=== PATIENT | female | born 1950 | race Caucasian/White ===

== ENCOUNTER 2017-01-09 13:45 | Inpatient (IN) | payer MEDICARE, BC ==
--- NOTE | 2016-12-27 15:22 | HP ---
AMENDED REPORT NOW INCLUDES COSIGNER DESIGNATION - ESIGNED BEFORE ADJUSTMENT CC: Florencio Gilbert MD; Vinh Zarco MD * ADMISSION HISTORY AND PHYSICAL: DATE OF ADMISSION/SURGERY: 01/09/17 ATTENDING SURGEON: Charly Covarrubias MD * (DICTATED BY BREA ERID) PRIMARY CARE PHYSICIAN: Florencio Gilbert MD CHIEF COMPLAINT: Colonic mass. HISTORY OF PRESENT ILLNESS: Mrs. Amezquita is a pleasant 66-year-old female, who was referred to our office for evaluation of A large colonic polyp. The patient apparently had her first screening colonoscopy earlier this month by Dr. Zarco that revealed a lesion at 40 cm from the anal verge with biopsies consistent with tubular adenoma. The patient herself denied having any lyndsay bleeding per rectum or recent weight loss. She does have a family history of colon cancer in her mom. She was seen earlier this month by Dr. Covarrubias and discussed the possibility of laparoscopic-assisted polypectomy versus partial colectomy. According to her colonoscopy report, the lesion was found at approximately 40 cm from the anal verge and was flat and large, but I do not have an actual size of the lesion. The lesion in the surrounding area was tattooed and biopsies were taken that was consistent with tubular adenoma. Again, the patient denied any abdominal pain, nausea, vomiting, or recent changes in her bowel habits. She is otherwise a relatively healthy older female with only hypertension as a past medical history. She had had some salivary gland infection recently for which she has been taking Augmentin twice a day and will finish her course 2 days from today. PAST MEDICAL HISTORY: Significant for hypertension. She denies any history of heart, lung, liver, or kidney disease. PAST SURGICAL HISTORY: Significant for tonsillectomy in childhood as well as right knee arthroscopy with repair of meniscal tear. CURRENT MEDICATIONS: Her medications at home include: 1. Ramipril 10 mg once daily. 2. Probiotic 1 tablet daily. 3. Vitamin C 500 mg 1 tablet daily. 4. Augmentin 500/125 mg 1 tablet b.i.d. ALLERGIES: She is allergic to CODEINE. FAMILY HISTORY: Significant for colon cancer in her mother. SOCIAL HISTORY: The patient is . She is retired, lives with her . She is a current smoker, smokes roughly half a pack per day for the last 30 plus years. She denies alcohol or illicit drug use. REVIEW OF SYSTEMS: See HPI, otherwise negative. She denies any headache, dizziness, blurred vision, or double vision. No sore throat, cough, shortness of breath, or dyspnea at rest. No back pain, flank pain, dysuria, hematuria, or urinary frequency. She denies abdominal pain, nausea, vomiting, and changes in bowel habits or bleeding per rectum. No fever, chills, night sweats or recent weight loss. PHYSICAL EXAMINATION GENERAL: She is a pleasant healthy-appearing older female in no acute distress or discomfort at the time of her visit. VITALS: Her vitals today revealed blood pressure of 128/78, pulse of 72, respirations of 18, temperature of 98 degrees. She weighs 140 pound on a 5 feet 2 inches giving her BMI of 25.6. HEENT: Sclerae anicteric. PERRLA. EOMs intact. Oropharynx is pink and moist with no exudate. NECK: Supple. Trachea midline. No cervical adenopathy, thyromegaly, or JVD. LUNGS: Clear to auscultation bilaterally. No rales, wheezes, or rhonchi noted. BREASTS: Exam deferred at this time. HEART: Regular rate and rhythm. Normal S1, S2 without rubs, murmurs, or gallops. BACK: Normal curvature. No CVA tenderness. ABDOMEN: Soft, nontender, and nondistended. No hernias, masses, or hepatosplenomegaly. There is no guarding, rigidity or rebound tenderness and Andrews sign was negative. EXTREMITIES: Without cyanosis, clubbing, or edema. RECTAL: Exam deferred until the time of surgery. NEUROLOGIC: Grossly intact. IMPRESSION: A 66-year-old female with recent diagnosis of tubular adenoma with large flat polyp 40 cm from the anal verge with biopsies consistent with tubular adenoma, who was seen in the office today to discuss surgery. PLAN: The patient is scheduled for a laparoscopic-assisted polypectomy with possible partial colectomy to be performed by Dr. Covarrubias on 01/09/17. Having a large tubular adenoma of the colon likely at the splenic flexure or transverse colon on an otherwise healthy woman represents about a 5% chance lifetime risk converting to colon cancer. For this reason, it was recommended for the patient to undergo a surgical intervention as outlined above. We will likely perform a partial colectomy versus polypectomy and it is hard to make that decision until the time of surgery. The patient seemed to understand and wishes to proceed. We outlined the details for her and the risks involved including but not limited to infection, bleeding, or injury to adjacent structures. She seemed to understand and wishes to proceed with surgery. We will get her bowel prep done the day before. She will also go for preadmission testing including labs, EKG, and chest x- ray given her longstanding history of smoking. We described with her that projected postoperative period and the likelihood to stay in the hospital for a minimum of 3 to 5 nights. We will follow her up accordingly. BREA REID [id number]/[facility] #: [id number] MTDEdgar
--- NOTE | 2017-02-14 21:37 | HP ---
CC: Dr. Vinh Zarco; Dr. Gilbert * HISTORY AND PHYSICAL: DATE OF SURGERY: 02/27/17 PATIENT OF: Charly Covarrubias MD ATTENDING SURGEON: Charly Covarrubias MD * (DICTATED BY BREA REID) PRIMARY CARE PHYSICIAN: Florencio Gilbert MD CHIEF COMPLAINT: Colonic mass. HISTORY OF PRESENT ILLNESS: Ms. Amezquita is a pleasant 66-year-old female who is well known to our practice from prior visit about a month ago. Patient was initially referred to our office for evaluation of a large colonic polyp. She had her first screening colonoscopy earlier in November of this year that revealed a large lesion at 40 cm from the anal verge whose biopsy is consistent with tubular adenoma. Patient was seen in the office shortly after that and was initially scheduled for a laparoscopic assisted polypectomy with possible partial colon resection. She underwent a readmission testing and unfortunately she was found to have some changes in her EKG for which further evaluation was warranted. Patient was seen by Dr. Aragon for cardiac evaluation and had an echocardiogram and a stress test that revealed no significant abnormalities. Patient returned back to our office for updated history and physical regarding her upcoming surgery. As mentioned, she was recently diagnosed with a large tubular adenoma approximately at 40 cm from the anal verge. She was seen by Dr. Covarrubias earlier in December and by myself and we discussed proceeding with surgery given her findings on the colonoscopy. Patient herself denies any significant changes since her last office visit. She denies any abdominal pain , nausea, vomiting. No recent changes in the bowel habits. She otherwise is relatively healthy older female with a history of hypertension, and has been recently on antibiotic due to a salivary gland infection for which she has been taking Augmentin until a couple of weeks ago. PAST MEDICAL HISTORY: Significant for hypertension. She denies any history of heart, lung, liver or kidney disease. PAST SURGICAL HISTORY: Significant for tonsillectomy as a child as well as right knee arthroscopy with repair of a meniscal tear. CURRENT MEDICATIONS: Include: 1. Ramipril 10 mg once daily. 2. Probiotic 1 tablet daily. 3. Vitamin C 500 mg 1 tablet daily. 4. Estrace vaginal cream with applicator as needed. ALLERGIES: She is allergic to Codeine. FAMILY HISTORY: Significant for colon cancer in her mother. SOCIAL HISTORY: Patient is . She is a retired adoption social worker. Lives with her . She is a current smoker, smokes approximately half pack per day for the past 30+ years, had preoperative chest x-ray last month that was within normal limits. She denies alcohol or illicit drug use. REVIEW OF SYSTEMS: See HPI. Otherwise, negative. She denies any headache, dizziness, blurred vision or double vision. No sore throat, cough, wheezing or shortness of breath. No chest pain, palpitation, dyspnea at rest or ankle swelling. She denies back pain, flank pain, dysuria, hematuria or urinary frequency. She denies abdominal pain, nausea, vomiting, or recent changes in the bowel habits. No fever, chills, night sweats or recent weight loss. PHYSICAL EXAMINATION GENERAL: She is a pleasant healthy-appearing older female, appears comfortable , in no acute distress or discomfort. VITAL SIGNS: Her vitals today revealed blood pressure of 152/88, pulse of 62, respiration of 16, temperature of 98.1. She is 5 feet 2 inches tall, weight is 140 pounds with BMI of 26. HEENT: Head is normocephalic, atraumatic. EOMs intact. PERRLA. Oropharynx is pink, moist with no exudate. NECK: Supple, trachea midline. No cervical adenopathy, thyromegaly or JVD. LUNGS: Clear to auscultation bilaterally. HEART: Regular rate and rhythm. Normal S1 and S2 without rubs, murmurs or gallops. BACK: With normal curvature. No CVA tenderness. BREASTS: Exam deferred at this time. ABDOMEN: Soft, nontender, nondistended. No hernias, masses or hepatosplenomegaly. There is no guarding, rigidity or rebound tenderness. Andrews sign if negative. EXTREMITIES: Without cyanosis, clubbing or edema. RECTAL: Exam deferred at this time. NEUROLOGIC: Grossly intact. IMPRESSION: A 66-year-old female with recent diagnosis of a tubular adenoma with large flat polyp at 40 cm from the anal verge whose biopsy is consistent with tubular adenoma. PLAN: The patient is scheduled for a laparoscopic-assisted polypectomy with possible partial colectomy to be performed by Dr. Covarrubias on 02/27/17. Having a large tubular adenoma of the colon, likely at the splenic flexure or transverse colon, on an otherwise healthy woman represents about 5% chance of lifetime risk converting to colon cancer. For this reason, it was recommended to her to undergo a surgical intervention as outlined above. We discussed with her the very possibility of doing a laparoscopic-assisted polypectomy or partial colectomy in case unsuccessful to do the polypectomy alone. The rationale, indication, risks and benefits were discussed with her today. The risks include but not limited to infection, bleeding, or injury to the adjacent structures. She will undergo a bowel prep the day before surgery as well as oral antibiotics for bowel cleansing. We will follow her up accordingly. BREA REID [id number]/[facility] #: [id number] COBY
[2017-02-26] MEDS ORDERED: Buffered Lidocaine 0.9% SYRIN* 5 ML/SYR SYRINGE INTRADERM ONE (12:30)
[2017-02-27] MEDS ORDERED: Famotidine TAB* 20 MG PO ONE (06:00)
[2017-02-27] MEDS ORDERED: Sodium Citrate/Citric Acid* 15 ML UDC PO ONE (06:00)
[2017-02-27] MEDS ORDERED: Metoclopramide TAB* 10 MG PO ONE (06:00)
[2017-02-27] MEDS ORDERED: Buffered Lidocaine 0.9% SYRIN* 5 ML/SYR SYRINGE ONE ×2 (11:40→12:03)
[2017-02-27] MEDS ORDERED: Metoclopramide TAB* 10 MG ONE (12:02)
[2017-02-27] MEDS ORDERED: Sodium Citrate/Citric Acid* 15 ML UDC ONE (12:02)
[2017-02-27] MEDS ORDERED: Famotidine TAB* 20 MG ONE (12:02)
[2017-02-27] MEDS ORDERED: NS 0.9% IVPB ONE (12:30)
[2017-02-27] MEDS ORDERED: ERTAPENEM IVPB ONE (12:30)
[2017-02-27] MEDS ORDERED: Ertapenem* 1 GM in NS 0.9% 50 ML* 50 ML IVPB ONE (12:30)
[2017-02-27] MEDS ORDERED: Bupivacaine 0.25% SDV* 30 ML ONE (15:04)
[2017-02-27] MEDS ORDERED: Propofol* 10 MG/ML 20 ML BTL IV PUSH ONE (15:40)
[2017-02-27] MEDS ORDERED: Lidocaine 2% PF * 5 ML VIAL ONE (15:40)
[2017-02-27] MEDS ORDERED: fentaNYL* 50 MCG/ML 5 ML VIAL (250 MCG VIAL) ONE (15:40)
[2017-02-27] MEDS ORDERED: Ketorolac INJ* 30 MG/ML 1 ML VIAL ONE (15:40)
[2017-02-27] MEDS ORDERED: Dexamethasone IV* 4 MG/ML 1 ML (4 MG) ONE (15:40)
[2017-02-27] MEDS ORDERED: Ondansetron INJ* 2 MG/ML VIAL ONE (15:40)
[2017-02-27] MEDS ORDERED: Atracurium* 10 MG/ML 10 ML VIAL ONE (15:40)
[2017-02-27] MEDS ORDERED: Phenylephrine IV* 40 MCG/ML 10 ML SYRINGE ONE (16:07)
[2017-02-27] MEDS ORDERED: EPHEDrine (Pressors)* 50 MG/ML VIAL ONE ×2 (16:33→18:13)
[2017-02-27] MEDS ORDERED: Ondansetron INJ* 2 MG/ML VIAL IV PRN (17:28)
[2017-02-27] MEDS ORDERED: DiMENhydriNATE IV* 50 MG/ML VIAL IV PUSH PRN (17:28)
--- NOTE | 2017-02-27 20:29 | SURGPN ---
Brief Operative Note - Surgery Procedures: Procedures Pre-OP Diagnoses: Colon polyp Post-op Diagnosis: same Procedure: Laparoscopic assisted polypectomy Surgeon: Satish Asst: Skip Meyer Anesthesia: GETA Bylephani EBL: <100cc IVF: 2800cc LR Specimen: colon polyp Drains: none santiago: 250cc
[2017-02-27] MEDS ORDERED: HYDROmorphone INJ* 1 MG/ML CARPUJECT SYRINGE ONE (21:38)
[2017-02-27] MEDS ORDERED: fentaNYL* 50 MCG/ML 2 ML VIAL (100 MCG VIAL) ONE (21:38)
[2017-02-27] MEDS: fentaNYL* 50 MCG/ML 2 ML VIAL (100 MCG VIAL) IV PRN ×2 (21:39→21:44)
[2017-02-27] MEDS: HYDROmorphone INJ* 1 MG/ML CARPUJECT SYRINGE IV PRN ×2 (21:40→21:48)
[2017-02-27] MEDS: Ondansetron INJ* 2 MG/ML VIAL IV PRN (22:19)
[2017-02-27] MEDS ORDERED: Ondansetron INJ* 2 MG/ML VIAL IV ONE (23:26)
[2017-02-28] MEDS: oxyCODONE/Acetamin 5/325 MG* TAB PO PRN ×4 (04:18→21:14)
[2017-02-28] MEDS: Heparin VIAL(*) 5000 UNITS/ML VIAL (FIVE THOUSAND) SUBCUT SCH ×3 (06:36→21:20)
[2017-02-28] MEDS: Ketorolac INJ* 30 MG/ML 1 ML VIAL IV PRN (06:40)
--- NOTE | 2017-02-28 07:46 | PN ---
Progress Note - Progress Note Date of Service: 02/28/17 SOAP: Subjective: Pt seen and examined. Feeling ok. some nausea with vomiting. no flatus Objective: af vss uo fgood a dn o x3 lungs clear abdo: soft/ mild distension/ incisional tenderness midline dressing: serous drainage no calf tenderness Assessment: POD1 lap assisted polypectomy Plan: d/c santiago OOB ambulate continue IVF d/c planning
--- NOTE | 2017-02-28 13:15 | OP ---
CC: Dr. Florencio Gilbert; Vinh Zarco; [facility] * DATE OF OPERATION: 02/27/17 - ROOM #341 DATE OF : 46 SURGEON: Charly Covarrubias MD FLIGHT ENGINEER HELICOPTER: BREA Romero and Dr. Jordon Meyer. ANESTHESIOLOGIST: Dr. Beka Cantu. ANESTHESIA: General. PRE-OP DIAGNOSIS: Large colon polyp. POST-OP DIAGNOSIS: Large colon polyp. OPERATIVE PROCEDURE: Laparoscopic assisted polypectomy. ESTIMATED BLOOD LOSS: Minimal blood loss. IV FLUIDS: 2800 cc of crystalloid fluid given. SPECIMEN: Colon polyp. DRAINS: None. Cook catheter only with approximately 250 cc out. COUNTS: Lap pad count and instrument count correct at the end of the procedure. The patient extubated and transferred to PACU in stable condition. DESCRIPTION OF PROCEDURE: The patient was identified in the preoperative area. Case discussed with both her and her again. Consent was signed. The patient was marked. She was taken to the operating room, placed on the operating table in supine position. Preoperative antibiotics were given. Sequential devices were placed on bilateral lower extremities. General anesthesia was induced. A Cook catheter was inserted and the patient's abdomen was prepped and draped in a standard surgical fashion and a time-out was performed. A supraumbilical incision was made. This was deepened down to the anterior fascia, which was incised as well as the posterior structures until we entered into the abdomen. Abdomen was allowed to insufflate to a pressure of 15 mmHg with a 12-mm trocar in place. Laparoscope was inserted through this and there was no evidence of injury from the trocar insertion and we reviewed the abdomen. There were some moderate adhesions to the anterior abdominal wall in the left upper quadrant. The liver appeared normal without any lesion. There was no free fluid. Small bowel appeared intact. An additional 5-mm trocar was inserted in the right lower quadrant. I reviewed the abdomen and looking at the transverse colon, no blue dye was identified. Again, there were these adhesions of the omentum to the anterior abdominal wall at the left upper quadrant. These were taken with electrocautery and LigaSure device until we were able to pull the omentum at this site more superiorly. A review of the cecum showed no blue dye. The descending colon what we could see of it distally showed no evidence of blue dye and again the sigmoid and rectum were evaluated and we did not appreciate this. We did additional dissection at the distal transverse colon, retracting this medially and anteriorly and we were able to get into a small window between the transverse colon and descending colon where we could see evidence of blue dye. Once this was identified, we took to taking down the splenic flexure. This did prove difficult. We started by retracting the descending colon medially and taken the white line of Toldt with electrocautery. We were able to rotate the bowel medially. The proximal portion of the descending colon did extend high up towards the spleen and we turned our attention to the transverse colon. We dissected the omentum that attached from transverse colon to the descending colon. This was painstaking and difficult and it showed signs of inflammation. We were able to fully evaluate this and at this point, we did feel more confident with this area of the colon that this is would be where the lesion was. Next, a gastrocolic ligament was taken down with LigaSure device and extending this towards the splenic flexure. Pain-staking dissection was utilized to mobilize the splenic flexure completely. The adhesions did extend into the lesser sac and these were taken with sharp dissection as well as electrocautery to fully bring the distal transverse colon medially and superiorly. Hemostasis was excellent. Once we felt that comfortable and confident that we had the splenic flexure mobilized. We grasped about the site and turned our attention to the midline. he 10-mm port site was extended superiorly and this was deepened down through all layers of the abdominal wall and entry into the abdominal cavity was made. The wound was protected with Christian type protector and the colon was then brought out through this incision. We quickly identified the blue inked area as well as the lesion through the wall of the colon. This portion of the colon was then cleared up of omentum to visualize the tenia better. Tenia was incised with electrocautery and the polyp was then brought out with an inverted through this. It was approximately 3 cm. It was flat and decision was made to staple through this with a TA stapler going through the full thickness of the colon from this anterior side. This was performed with a 68 mm ANGIE blue loaded stapler. The polyp was fully transected and passed off as specimen. Hemostasis was excellent at this site and we allowed this internal portion to fall back into our initial incision. The Christian' were then placed on our initial incision, which was opened up longitudinally and we closed this with another 60-mm TA stapler in the transverse fashion. The lumen appeared large enough and intact. Additional 3- 0 silk sutures were utilized to dunk the corners of the staple line. Next, the bowel was run distally and 2 areas of serosal embarrassment was reapproximated with 3-0 silk sutures to imbricate this site. There were no [id number] injuries to the colon. There was no evidence of lymphadenopathy. The colon was then allowed to fall back into the abdomen. I reviewed the abdomen, but the incision was quite small and we were unable to really get our hands in there. The fascia was reapproximated with #1 Vicryl sutures in a [id number] fashion. The wound then was irrigated and reapproximated to the skin level with skin luan. It should be noted that all in all, we did place five 5-mm ports in all around the umbilical port site to gain access at the various portions of the procedure. We stapled all the laparoscopic incisions as well. Dressing was applied. The patient was woken up and transferred to the PACU in stable condition. [id number]/[facility] #: [id number] COBY
[2017-03-01] MEDS ORDERED: oxyCODONE/Acetamin 5/325 MG* TAB PO PRN (00:40)
[2017-03-01] MEDS: HYDROmorphone INJ* 2 MG/ML CARPUJECT SYRINGE IV PRN ×2 (01:12→05:05)
[2017-03-01] MEDS: Heparin VIAL(*) 5000 UNITS/ML VIAL (FIVE THOUSAND) SUBCUT SCH ×3 (06:33→22:52)
[2017-03-01] MEDS: Ondansetron INJ* 2 MG/ML VIAL IV PRN (07:20)
[2017-03-01] MEDS: Ketorolac INJ* 30 MG/ML 1 ML VIAL IV PRN ×3 (07:22→19:50)
--- NOTE | 2017-03-01 10:13 | PN ---
Progress Note - Progress Note Date of Service: 03/01/17 SOAP: Subjective: Pt seen and examined. Feeling better now, but had difficult night with midabdominal pain. some nausea with vomiting. Still no flatus, no BM Objective: af vss a and o x3 lungs clear b/l abdo: soft/ distended/ incisional tenderness dressing removed, some non-blanching erythema at midline incision normal BS no calf tenderness Assessment: POD2 lap assisted polypectomy, ileus Plan: OOB ambulate change ivf labs pain control f/u path d/c planning
[2017-03-01 10:46] LABS: Hematocrit 37 % (35-47); Hemoglobin 12.5 g/dl (12.0-16.0); Mean Corpuscular HGB Conc 34 g/dl (31-36); Mean Corpuscular Hemoglobin 32 pg (27-31); Mean Corpuscular Volume 93 fL (80-97); Mean Platelet Volume 7 um3 (7.4-10.4); Red Blood Count 3.96 10^6/ul (4.0-5.4); Red Cell Distribution Width 13 % (10.5-15); White Blood Count 10.4 10^3/ul (3.5-10.8)
[2017-03-01] MEDS: D5W 1/2 NS KCl 20 Meq 1000 ML* 1,000 ML IV SCH (10:47)
[2017-03-01 11:08] LABS: Calcium 8.9 mg/dL (8.6-10.3); EGFR African American 135.7 (>60); EGFR Non-African American 105.5 (>60); Magnesium 1.8 mg/dL (1.9-2.7); Phosphorus 2.3 mg/dL (2.5-5.0); Potassium 3.6 mmol/L (3.5-5.0)
[2017-03-01] MEDS: Famotidine TAB* 20 MG PO SCH ×2 (11:27→22:52)
[2017-03-01] MEDS ORDERED: Magnesium Sulfate 1 GM IV* 1 GM/100 ML BAG IV ONE (14:39)
[2017-03-01] MEDS ORDERED: Potassium Phosphate IV* 15 MMOLE in NS 0.9% 250 ML* 250 ML IVPB ONE (14:41)
[2017-03-01] MEDS ORDERED: POTASSIUM PHOSPHATE IVPB ONE (14:54)
[2017-03-01] MEDS ORDERED: D5W IVPB ONE (14:54)
[2017-03-02] MEDS: D5W 1/2 NS KCl 20 Meq 1000 ML* 1,000 ML IV SCH (01:19)
[2017-03-02] MEDS: Acetaminophen TAB* 325 MG PO PRN ×2 (01:25→08:09)
[2017-03-02] MEDS: Heparin VIAL(*) 5000 UNITS/ML VIAL (FIVE THOUSAND) SUBCUT SCH (06:19)
[2017-03-02] MEDS: Famotidine TAB* 20 MG PO SCH (08:08)
--- NOTE | 2017-03-02 08:49 | PN ---
Progress Note - Progress Note Date of Service: 03/02/17 Note: Surgery Ms. Amezquita reports she started passing flatus this morning. She is anxious to try food. She wants to go home. Vital Signs 03/01/17 03/01/17 03/01/17 11:48 15:34 19:40 Temperature 98.5 F 98.8 F Pulse Rate 77 86 82 Respiratory 16 16 18 Rate Blood Pressure 157/76 145/71 (mmHg) O2 Sat by Pulse 95 92 Oximetry 03/01/17 03/01/17 03/01/17 19:41 23:07 23:12 Temperature 98.9 F 98.6 F Pulse Rate 86 70 72 Respiratory 16 16 Rate Blood Pressure 147/72 164/67 165/77 (mmHg) O2 Sat by Pulse 94 97 Oximetry 03/02/17 03/02/17 03:51 07:25 Temperature 98.0 F 98.6 F Pulse Rate 78 78 Respiratory 14 16 Rate Blood Pressure 134/65 164/81 (mmHg) O2 Sat by Pulse 93 96 Oximetry Abd: protruberant, soft, non-tender. Incisions: clean and dry; no signs infection. Intake & Output 03/01/17 03/02/17 03/02/17 22:59 06:59 14:59 Intake Total 2470 1046 Output Total 1900 1000 800 Balance 570 46 -800 Intake: IV Fluids 815 546 D5W 1/2 NS 20 meq KCL 815 546 IVPB 385 LR 115 potassium phosphate 270 Oral 1270 500 Output: Urine 1900 1000 800 Other: # Bowel Movements 0 Laboratory Results - last 24 hr 03/01/17 03/01/17 10:40 10:40 WBC 10.4 RBC 3.96 L Hgb 12.5 Hct 37 MCV 93 MCH 32 H MCHC 34 RDW 13 Plt Count 275 MPV 7 L Sodium 137 Potassium 3.6 Chloride 100 L Carbon Dioxide 32 Anion Gap 5 BUN 8 Creatinine 0.57 Est GFR ( Amer) 135.7 Est GFR (Non-Af Amer) 105.5 BUN/Creatinine Ratio 14.0 Glucose 121 H Calcium 8.9 Phosphorus 2.3 L Magnesium 1.8 L POD#3 Making good progress. If she tolerated a diet, she can go home.
[2017-03-02 12:35] VITALS: BP 158/83
== END 2017-03-02 14:10 | disposition home or self-care (01) | DRG 336 ==
LOC: AA 02-27 11:26 → SSU 02-27 22:00
PROVIDERS: ADMIT Surgery; ATTEND Surgery
PROC: 0DNL4ZZ Release Transverse Colon, Percutaneous Endoscopic Approach (ICD-10-PCS; 2017-02-27)
PROC: 0D5 Gastrointestinal System, Destruction (ICD-10-PCS; principal; 2017-02-27 13:00)
DX: K63.5 Polyp of colon (principal); K56.7 Ileus, unspecified; F17.200 Nicotine dependence, unspecified, uncomplicated; I10 Essential (primary) hypertension; K66.0 Peritoneal adhesions (postprocedural) (postinfection); M19.90 Unspecified osteoarthritis, unspecified site; Z80.0 Family history of malignant neoplasm of digestive organs; R11.2 Nausea with vomiting, unspecified; Z88.5 Allergy status to narcotic agent; Z53.31 Laparoscopic surgical procedure converted to open procedure
CPT/HCPCS: 36415; 80048; 83735; 84100; 85027; 88305; 88341; 88342; A9270-GY; J1100; J1170; J1335; J1644; J1885; J2405; J2704; J3010; J3475

== ENCOUNTER 2017-01-25 15:21 | Emergency (ER) | payer MEDICARE, BC ==
[2017-01-25 15:40] VITALS: BP 157/98
--- NOTE | 2017-01-25 15:58 | UC ---
Complaint Female HPI - HPI Summary HPI Summary: was on antibiotics last month. has pain and burning with urination no fevers no vaginal discharge - History Of Current Complaint Chief Complaint: UCGU Stated Complaint: VAGINAL PAIN Time Seen by Provider: 01/25/17 15:29 Hx Obtained From: Patient ?: No Onset/Duration: Gradual Onset, Lasting Days Timing: Constant Severity Initially: Mild Severity Currently: Mild Character: Burning Aggravating Factor(s): Urination Alleviating Factor(s): Nothing Associated Signs And Symptoms: Positive: Negative - Allergies/Home Medications Allergies/Adverse Reactions: Allergies Allergy/AdvReac Type Severity Reaction Status Date / Time Codeine AdvReac Severe NAUSEA, Verified 01/25/17 15:34 "MAKES ME HIGH & KNOCKS ME OUT" PMH/Surg Hx/FS Hx/Imm Hx Previously Healthy: No Cardiovascular History: Hypertension - Surgical History Surgical History: Yes Surgery Procedure, Year, and Place: SKIN TAGS FROZEN AROUND BREASTS - Family History Known Family History: Positive: None - Social History Occupation: Retired Lives: With Family Alcohol Use: Occasionally Substance Use Type: None Smoking Status (MU): Heavy Every Day Tobacco Smoker Type: Cigarettes Amount Used/How Often: 1 PPD Have You Smoked in the Last Year: No Cessation Counseling: Counseled 3+Min - 10 Min Review of Systems Constitutional: Negative Skin: Negative Eyes: Negative ENT: Negative Respiratory: Negative Cardiovascular: Negative Gastrointestinal: Negative Genitourinary: Dysuria Motor: Negative Neurovascular: Negative Musculoskeletal: Negative Neurological: Negative Psychological: Negative Is Patient Immunocompromised?: No All Other Systems Reviewed And Are Negative: Yes Physical Exam Triage Information Reviewed: Yes Appearance: Well-Appearing, No Pain Distress, Well-Nourished Vital Signs: Initial Vital Signs Temp 98.2 F 01/25/17 15:36 Pulse 102 01/25/17 15:36 Resp 20 01/25/17 15:36 BP 157/98 01/25/17 15:36 Pulse Ox 99 01/25/17 15:36 Vital Signs Reviewed: Yes Eye Exam: Other Eyes: Positive: Conjunctiva Clear ENT Exam: Normal ENT: Positive: Normal ENT inspection, Hearing grossly normal, Pharynx normal, TMs normal. Negative: Nasal congestion, Nasal drainage, Trismus, Muffled/ hoarse voice Dental Exam: Normal Neck exam: Normal Neck: Positive: Supple, Nontender Respiratory Exam: Normal Respiratory: Positive: Chest non-tender, No respiratory distress, No accessory muscle use Cardiovascular Exam: Normal Cardiovascular: Positive: RRR, Brisk Capillary Refill Abdominal Exam: Normal Abdomen Description: Positive: Nontender, No Organomegaly, Soft. Negative: CVA Tenderness (R), CVA Tenderness (L) Bowel Sounds: Positive: Present Musculoskeletal Exam: Normal Musculoskeletal: Positive: Strength Intact, ROM Intact, No Edema Neurological Exam: Normal Neurological: Positive: Alert, Muscle Tone Normal Psychological Exam: Normal UC Physical Exam Vital Signs On Initial Exam: Initial Vitals Temp Pulse Resp BP Pulse Ox 98.2 F 102 20 157/98 99 01/25/17 15:36 01/25/17 15:36 01/25/17 15:36 01/25/17 15:36 01/25/17 15:36 - Genitalia Exam Female Genitourinary: Normal External Exam Complaint Female Dx - Course Course Of Treatment: culture urine, affirm, keflex increase fluids follow with pcp for re check and blood pressure recheck - Differential Dx/Diagnosis Provider Diagnoses: UTI, Dysuria Discharge - Discharge Plan Condition: Stable Disposition: HOME Prescriptions: Cephalexin CAP* [Keflex CAP*] 500 mg PO BID #20 cap Patient Education Materials: Urinary Tract Infection in Women (ED), Dysuria (ED ), Hypertension (ED) Referrals: Florencio Gilbert MD [Primary Care Provider] - 2 Weeks
== END 2017-01-25 16:15 | disposition home or self-care (01) ==
LOC: UCEAST 15:21
DX: N39.0 Urinary tract infection, site not specified (principal); I10 Essential (primary) hypertension; F17.210 Nicotine dependence, cigarettes, uncomplicated; Z88.5 Allergy status to narcotic agent
CPT/HCPCS: 81003; 87077; 87086; 87186; 87480; 87510; 99212; G0463